=== PATIENT | female | born 1995 | race Caucasian/White ===

== ENCOUNTER → 2018-07-01 | Outpatient (CLI) | payer OTHER ==
[2018-07-01 17:50] LABS: BASO % 0.1 % (0.0-1.0); EOS % 0.3 % (0.0-3.0); HEMATOCRIT 39.1 % (36.0-47.0); HEMOGLOBIN 12.9 g/dl (12.0-15.5); LYMPH # 1.4 10^3/uL (1.5-6.5); LYMPH % 12.7 % (24.0-44.0); MEAN CORPUSCULAR VOLUME 90.9 fl (80.0-96.0); MONO # 0.6 10^3/uL (0.0-0.8); MONO % 5.4 % (0.0-5.0); NEUTROPHILS # 8.8 10^3/uL (1.8-7.7); NEUTROPHILS % 81.1 % (36.0-66.0); PLATELET COUNT, AUTOMATED 319 10^3/uL (150-450); WHITE BLOOD COUNT 10.8 10^3/uL (4.0-10.0)
[2018-07-01 18:59] LABS: CHLAMYDIA DNA AMPLIFICATION NEGATIVE (NEGATIVE); GC DNA AMPLIFICATION NEGATIVE (NEGATIVE)
[2018-07-02 10:31] LABS: HEPATITIS C VIRUS ABY INDEX < 0.0 INDEX (<0.8); HIV 1&2 SCREEN CENTAUR NEGATIVE (NEGATIVE); RUBELLA IgG QUALITATIVE IMMUNE (IMMUNE)
== END ==
LOC: M SMT 14:51
PROVIDERS: ATTEND Advanced Practice Midwife
DX: Z34.82 Encounter for supervision of other normal pregnancy, second trimester (principal); Z3A.00 Weeks of gestation of pregnancy not specified

== ENCOUNTER → 2018-07-28 | Outpatient (CLI) | payer OTHER ==
[2018-07-28 19:04] LABS: ALT/SGPT 55 U/L (12-78); BILIRUBIN,TOTAL 0.2 MG/DL (0.2-1.0); CREATININE FOR GFR 0.63 MG/DL (0.55-1.30); GLOMERULAR FILTRATION RATE > 60.0 (>60); LDH LACTATE DEHYDROGENASE 133 U/L (84-246); URIC ACID 4.2 MG/DL (2.6-6.0)
[2018-07-28 19:24] LABS: CREATININE,RANDOM URINE 62.5 MG/DL; TOTAL PROTEIN,RANDOM URINE < 5.0 MG/DL (0.0-12.0)
== END ==
LOC: M SMT 14:43
PROVIDERS: ATTEND Advanced Practice Midwife
DX: O10.012 Pre-existing essential hypertension complicating pregnancy, second trimester (principal); Z3A.00 Weeks of gestation of pregnancy not specified

== ENCOUNTER → 2018-07-30 | Outpatient (CLI) | payer OTHER ==
--- NOTE | 2018-07-30 11:51 | REP ---
OB ULTRASOUND: Real-time sonographic evaluation of the gravid uterus is performed. There is a single living intrauterine gestation with the estimated gestational age 18 weeks 5 days with EDC 12/26/2018. Today's measurements indicate appropriate growth. Biometry and Growth: BPD 43 mm = 18 weeks 6 days, 55th percentile HC 157 mm = 18 weeks 4 days, 46th percentile AC 133 mm = 18 weeks 5 days, 52nd percentile FL 28 mm = 18 weeks 5 days, 50th percentile HC/AC ratio 1.18 within normal range. Estimated weight 255 grams, 40th percentile. SEEN/GROSSLY UNREMARKABLE Lateral ventricles Yes Posterior fossa No Upper lip No Four-chamber heart Yes LVOT Yes RVOT Yes Stomach Yes Cord insertion No Three vessel cord Yes Kidneys Yes Bladder Yes Spine No Cervical length: Closed and measures 3.5 cm in length. heart rate: 150 beats per minute. position: Vertex. Placenta: Anterior and grade 0 with no previa or abruption. Amniotic fluid: Within normal limits. Electronically Signed by Jin Gary MD 07/30/2018 04:16 P
== END ==
LOC: M RAD 08:29
PROVIDERS: ATTEND Advanced Practice Midwife
DX: Z34.82 Encounter for supervision of other normal pregnancy, second trimester (principal); Z36.89 Encounter for other specified antenatal screening; Z3A.18 18 weeks gestation of pregnancy

== ENCOUNTER → 2018-08-17 | Outpatient (CLI) | payer OTHER ==
--- NOTE | 2018-08-17 16:21 | REP ---
OB ULTRASOUND: Real-time sonographic evaluation of the gravid uterus is performed. This is a followup to an anatomical survey 07/30/2018. There is a single living intrauterine gestation. The estimated gestational age is 21 weeks 2 days. EDC 12/26/2018. Today's measurements indicate appropriate growth. BPD 51 mm = 21 weeks 3 days, 54th percentile. HC 186 mm = 21 weeks 0 days, 39th percentile. AC 174 mm = 22 weeks 2 day, at the 72nd percentile. Femur length 39 mm = 22 weeks 3 days, at the 80th percentile. HC/AC ratio 1.07 within normal range. Estimated weight 485 77th percentile. heart rate 162 beats per minute. Visualized anatomy today the posterior fossa, upper lip, cord insertion and spine which were all grossly unremarkable, not seen well on prior study. position was breech. Placenta is anterior and grade 0 with no previa or abruption. Amniotic fluid within normal limits. Cervix is closed and measures 3.6 cm in length. Electronically Signed by Jin Gary MD 08/17/2018 04:45 P
== END ==
LOC: M RAD 14:10
PROVIDERS: ATTEND Advanced Practice Midwife
DX: O10.012 Pre-existing essential hypertension complicating pregnancy, second trimester (principal); Z3A.21 21 weeks gestation of pregnancy

== ENCOUNTER → 2018-09-23 | Outpatient (CLI) | payer OTHER ==
[2018-09-24 10:09] LABS: HEMATOCRIT 37.3 % (36.0-47.0); HEMOGLOBIN 11.6 g/dl (12.0-15.5); MEAN CORPUSCULAR HEMOGLOBIN 30.6 pg (27.0-33.0); MEAN CORPUSCULAR HGB CONC 31.1 g/dl (32.0-36.5); MEAN CORPUSCULAR VOLUME 98.4 fl (80.0-96.0); PLATELET COUNT, AUTOMATED 289 10^3/uL (150-450); RED BLOOD COUNT 3.79 10^6/uL (4.00-5.40); WHITE BLOOD COUNT 9.7 10^3/uL (4.0-10.0)
== END ==
LOC: M SMT 13:44
PROVIDERS: ATTEND Advanced Practice Midwife
DX: O10.012 Pre-existing essential hypertension complicating pregnancy, second trimester (principal); Z3A.00 Weeks of gestation of pregnancy not specified
CPT/HCPCS: 36415; 82950; 85027; 86850; 86900; 86901; J2790

== ENCOUNTER → 2018-10-21 | Outpatient (CLI) | payer OTHER ==
--- NOTE | 2018-10-21 16:03 | REP ---
Obstetric ultrasound for biophysical profile in a patient with preexisting essential hypertension complicating : There is a single intrauterine gestation in a vertex presentation. There is motion and cardiac activity. The heart rate of 147 beats per minute. The placenta is anterior. There is no placenta previa or abruptio. The placenta demonstrates grade 2 maturity. Subjectively the amniotic fluid volume appears normal. The amniotic fluid index is 13.8/8.9 - 23.8. The cervix measures 2.6 cm length. Gestational age by today's ultrasound is 31 weeks 1 day/MARIO 12/22/2018. Gestational age by the first ultrasound is 30 weeks 5 days/MARIO 12/25/2018. Gestational age by LMP is 30 weeks 4 days/MARIO 12/26/2018. weight is 1667 grams/3 pounds, 10 ounces. This is the 49 percentile for 30 weeks 4 days. biophysical profile: Breathing 2.0 Movement 2.0 Tone 2.0 AFV 2.0 Total 8.0 / 8.0 Umbilical artery Doppler assessment: S/D ratio 2.92 (2.30-3.30) Resistive Index 0.66 (0.59-0.75 Diastolic Velocity 14.7 (>10 cm/sec) anatomy: No anomalies are identified, however, the facial profile could not be optimally demonstrated. However, the facial profile was optimally demonstrated on the prior study of 07/30/2018. Electronically Signed by Jin Cotter MD 10/21/2018 03:53 P
== END ==
LOC: M RAD 13:33
PROVIDERS: ATTEND Obstetrics & Gynecology
DX: O10.013 Pre-existing essential hypertension complicating pregnancy, third trimester (principal); Z36.89 Encounter for other specified antenatal screening; Z3A.31 31 weeks gestation of pregnancy

== ENCOUNTER → 2018-11-23 | Outpatient (CLI) | payer OTHER ==
--- NOTE | 2018-11-24 06:37 | REP ---
Clinical: Growth evaluation. Comparison: 10/21/2018 . Findings: Examination demonstrates a single live intrauterine in cephalic presentation. motion is identified by technologist. Placenta is noted anterior and grade I I without evidence for placenta previa or abruption. Amniotic fluid volume is normal. Cervix measures 2.7 cm in length and appears closed. No evidence for nuchal cord. Gestational age by LMP 35 weeks 2 days with MARIO 12/26/2018 . Gestational age by current measurements 35 weeks 4 day with MARIO is 12/24/2018 . FHR equals 147 beats per minute. BPD 8.9 cm 36 weeks 0 days HC 32.0 cm 36 weeks 0 days AC 31.0 cm 34 weeks 6 days FL 7.0 cm 35 weeks 5 days HL 6.1 cm 35 weeks 4 days HC/AC ratio 1.03 Estimated weight 2653 grams ( 49th percentile). Amniotic fluid index: 10.4 cm (7.8 - 24.9) Umbilical cord SD ratio: 1.76 (2.00 - 3.00) Impression: 1. Single live advanced gestation in cephalic presentation demonstrating appropriate interval growth. 2. Umbilical cord SD ratio minimally below normal range. Electronically Signed by Jordan Arnold MD 11/24/2018 06:29 A
== END ==
LOC: M RAD 12:33
PROVIDERS: ATTEND Obstetrics & Gynecology
DX: O10.013 Pre-existing essential hypertension complicating pregnancy, third trimester (principal)

== ENCOUNTER → 2018-12-03 | Outpatient (CLI) | payer OTHER | LOC: M SMT 13:36 | PROVIDERS: ATTEND Advanced Practice Midwife | DX: O10.013 Pre-existing essential hypertension complicating pregnancy, third trimester (principal) ==

== ENCOUNTER → 2018-12-03 | Outpatient (REF) | payer OTHER | LOC: M LAB REF 16:49 | PROVIDERS: ATTEND Advanced Practice Midwife | DX: O10.013 Pre-existing essential hypertension complicating pregnancy, third trimester (principal) ==

== ENCOUNTER 2018-12-12 22:13 | Inpatient (IN) | payer OTHER ==
[~2018-12-12] VITALS: Ht 170.2 cm; Wt 80.4 kg
[2018-12-12] MEDS: LR 1,000 ML IV SCH (00:45)
[2018-12-12 22:39] VITALS: BP 133/84
[2018-12-12] MEDS ORDERED: PENICILLIN G POTASSIUM IV 5 MU in D5W MINI-BAG PLUS 100 ML IV STA (22:58)
[2018-12-12] MEDS ORDERED: LACTATED RINGER'S 1000 ML IV STA (22:58)
[2018-12-12 23:25] LABS: HEMATOCRIT 34.3 % (36.0-47.0); HEMOGLOBIN 11.4 g/dl (12.0-15.5); MEAN CORPUSCULAR HEMOGLOBIN 29.8 pg (27.0-33.0); MEAN CORPUSCULAR HGB CONC 33.2 g/dl (32.0-36.5); MEAN CORPUSCULAR VOLUME 89.6 fl (80.0-96.0); PLATELET COUNT, AUTOMATED 236 10^3/uL (150-450); RED BLOOD COUNT 3.83 10^6/uL (4.00-5.40); WHITE BLOOD COUNT 10.1 10^3/uL (4.0-10.0)
[2018-12-12] MEDS: miSOPROStol 50 MCG 1/2 TAB (S0191) SL SCH (23:45)
[2018-12-13] VITALS (60 sets, daily range): BP systolic 102–177; BP diastolic 52–96
[2018-12-13] MEDS ORDERED: PRENTAB9 PO
[2018-12-13] MEDS ORDERED: LABE100T36 PO (00:03)
[2018-12-13] MEDS ORDERED: ACETAMINOPHEN 500 MG TAB PO ONE (00:30)
[2018-12-13] MEDS: PENICILLIN G POTASSIUM IV 2.5 MU in IV 1 EA IV SCH ×2 (04:01→07:44)
[2018-12-13] MEDS: miSOPROStol 50 MCG 1/2 TAB (S0191) SL SCH (04:03)
[2018-12-13] MEDS ORDERED: FENTANYL 2MCG/ML ROPIVACAINE 0.2% IN 0.9% NACL 100ML IVBAG As Ordered ONE (06:36)
[2018-12-13] MEDS ORDERED: OXYTOCIN 30 UNITS IN 0.9% NaCl 500ML IV BAG (J2590) As Ordered ONE (07:04)
[2018-12-13] MEDS ORDERED: EPIDURAL/PCA KEYS XX PRN (07:45)
[2018-12-13] MEDS ORDERED: LACTATED RINGER'S 1000 ML IV PRN (07:45)
[2018-12-13] MEDS ORDERED: ONDANSETRON 4MG/2ML VIAL (J2405) IV PRN (07:45)
[2018-12-13] MEDS ORDERED: NALOXONE INJ 0.4 MG/1 ML VIAL (J2310) IV PRN (07:45)
[2018-12-13] MEDS ORDERED: diphenhydrAMINE INJ 50MG/ML VIAL (J1200) IV PRN (07:45)
[2018-12-13] MEDS ORDERED: FENTANYL/ROPIVACAINE/NACL BAG 100 ML EPIDURAL SCH (07:45)
[2018-12-13] MEDS ORDERED: EPIDURAL COMMENT XX SCH (07:45)
[2018-12-13] MEDS ORDERED: REFRIGERATOR IV KEYS XX PRN (07:45)
[2018-12-13] MEDS: PRENATAL VITAMINS CHEWABLE TABLET PO SCH (09:00)
[2018-12-13] MEDS: ePHEDrine SULFATE 25 MG/5 ML(5MG/ML) SYRINGE IV PRN ×3 (09:15→11:19)
[2018-12-13] MEDS ORDERED: OXYTOCIN DRIP 30 UNITS in IV 1 EA IV SCH ×3 (09:45→15:15)
[2018-12-13] MEDS: LR 1,000 ML IV SCH (10:54)
--- NOTE | 2018-12-13 11:34 | IPNPDOC ---
Obstetrical Progress Note Date of Service Dec 13, 2018 Subjective Patient has no complaints. She reports her epidural is working well. Objective Vital Signs Date Time Temp Pulse Resp B/P (MAP) Pulse Ox O2 Delivery O2 Flow Rate FiO2 12/13/18 10:55 98.8 62 18 126/68 (87) Assessment Heart Rate (FHR): 140 Variability: Moderate Accelerations: Positive Decelerations: None Heart Rate Tracing: Category I Tocometer Contractions: Yes Frequency: regular Sterile Vaginal Examination Dilation: complete Station: +1 Assessment and Plan Age: 23 : 1 EGA at Admission: 38 Status: Reassuring Group B Streptococcus: Positive Anticipate: Vaginal Delivery Additional Comments AROM to a small amount of meconium fluid. IV Pitocin is at 4 mu/min. Patient denies feeling any pressure. Will let patient labor down for 30-45 minutes then begin pushing. SERAFIN PAINTING CNM Dec 13, 2018 11:34
[2018-12-13] MEDS ORDERED: METHYLERGONOVINE MALEATE 0.2 MG TAB PO PRN (13:00)
[2018-12-13] MEDS ORDERED: RHOGAM 300 MCG (1500 IU) INJ (J2790) IM SCH (13:00)
[2018-12-13] MEDS ORDERED: MEASLES,MUMPS,RUBELLA VACCINE INJ (MMR-II) (90707) SC SCH (13:00)
[2018-12-13] MEDS ORDERED: ACETAMINOPHEN TAB 650MG DOSE (2X325MG) PO PRN (13:00)
[2018-12-13] MEDS ORDERED: IBUPROFEN 600 MG TAB PO PRN (13:00)
[2018-12-13] MEDS ORDERED: DOCUSATE SODIUM 100 MG CAP PO PRN (13:00)
[2018-12-13] MEDS ORDERED: DIBUCAINE 1% OINTMENT 30GM TOP PRN (13:00)
[2018-12-13] MEDS ORDERED: ANUSOL HC CREAM 30GM TOP PRN (13:00)
--- NOTE | 2018-12-13 13:26 | DNPDOC ---
[facility] Delivery Note Delivery Note DATE OF DELIVERY: 12/13/18 at 12:25 pm. PREDELIVERY DIAGNOSIS: 38-1/7 weeks' gestation and labor. POST DELIVERY DIAGNOSIS: Delivered. PROCEDURE: Spontaneous vaginal delivery. PROVIDER: Serafin Henry CNM, [place] ANESTHESIA: epidural. ESTIMATED BLOOD LOSS: 400 mL. FINDINGS: 6 pounds 0 ounces; 2730 grams, female infant, Score 9/9, CHTN, meconium. DELIVERY SUMMARY: Patient is a 23-year-old female who is now a who presented for an IOL for CHTN. Her BP has been managed on Labetalol 50 mg BID. Cytotec and IV Pitocin were used for her IOL. She received an epidural for pain management. The patient progressed to fully dilated at 1126 and pushing to a living female in the ANGIE position with restitution to ROT. The anterior should delivered with ease and the corpus immediately followed. The baby was placed on the maternal abdomen active and crying. The cord was clamped times 2 after pulsation ceased and cut by the FOB. The placenta delivered spontaneously and intact at 1230. Uterine hemostasis was achieved via rapid infusion of IV Pitocin and fundal massage. The vagina, perineum and cervix was inspected and found to have a right sulcus tear and a left labial tear. Both were repaired with a 3.[address]-1. Good hemostasis was achieved. A cyst on the right perineal area was incised and removed in it's core. No repair needed. Mom and baby are in stable condition. They are naming her Annelise. Mom plans to breast and formula feed . All counts of instruments and sponges are correct. SERAFIN HENRY CNM Dec 13, 2018 13:26
[2018-12-13] MEDS: IBUPROFEN 800 MG TAB PO PRN ×2 (13:49→21:50)
--- NOTE | 2018-12-13 15:31 | IPNPDOC ---
Obstetrical Progress Note Date of Service Dec 13, 2018 Subjective Patient reports she is comfortable with her epidural. Objective Vital Signs Date Time Temp Pulse Resp B/P (MAP) Pulse Ox O2 Delivery O2 Flow Rate FiO2 12/13/18 14:35 99.0 100 20 136/70 (92) Assessment Heart Rate (FHR): 120 Variability: Moderate Accelerations: Positive Decelerations: None Heart Rate Tracing: Category I Tocometer Contractions: Yes Frequency: regular Sterile Vaginal Examination Dilation: 4 cm (4-5 cm) Effacement (%): 100% Station: 0 Postion/Presentation: Cephalic presentation Assessment and Plan Status: Reassuring Group B Streptococcus: Negative Anticipate: Vaginal Delivery Additional Comments Patient has a moderate amount of bleeding. Dr. Henry notified. Will start low dose IV Pitocin to make sure fetus tolerates increased contractions. Consider diagnosis of abruption. Plan to AROM patient when Dr. Henry arrives in L&D. SERAFIN PAINTING CNM Dec 13, 2018 15:31
[2018-12-13] MEDS: ACETAMINOPHEN 500 MG TAB PO PRN (17:47)
[2018-12-14] MEDS: ACETAMINOPHEN 500 MG TAB PO PRN (01:53)
[2018-12-14] MEDS: IBUPROFEN 800 MG TAB PO PRN ×2 (05:51→19:03)
[2018-12-14 06:00] VITALS: BP 139/79
--- NOTE | 2018-12-14 07:40 | IPNPDOC ---
Progress Note Date of Service: Dec 14, 2018 Day#: 1 Progress Note SUBJECT: She has been ambulating, voiding spontaneously without issue and tole rating regular diet. She reports back pain at the epidural site that radiates up her back and a severe headache. OBJECTIVE: VITAL SIGNS: Within normal limits, afebrile. Alert and oriented times three. Breath sounds clear to auscultation. Heart rate: Regular rate and rhythm, no murmurs, rubs or gallops. Abdomen: Fundus firm at U-1. Soft, NTTP. Minimal lochia. ASSESSMENT: Day 1 . PLAN: 1. Anesthesia has been consulted and are considering spinal patch. 2. Continue supportive nursing care. 3. Anticipate discharge to home tomorrow. VS, I&O, 24H, Fishbone Vital Signs/I&O Vital Signs Date Time Temp Pulse Resp B/P (MAP) Pulse Ox O2 Delivery O2 Flow Rate FiO2 12/14/18 06:00 97.7 80 18 139/79 (99) I&O- Last 24 Hours up to 6 AM 12/14/18 05:59 Intake Total 2163.4 ml Output Total 2150 ml Balance 13.4 ml SERAFIN PAINTING CNM Dec 14, 2018 07:40
[2018-12-14] MEDS ORDERED: PERCOCET 5MG/325MG TAB PO ONE ×2 (09:45→15:00)
[2018-12-14] MEDS ORDERED: LR 1,000 ML IV ONE ×2 (10:00→13:30)
[2018-12-14] MEDS: PRENATAL VITAMINS CHEWABLE TABLET PO SCH (10:06)
[2018-12-14] MEDS: FIORICET TAB PO PRN ×3 (10:07→20:37)
[2018-12-14] MEDS ORDERED: CYCLOBENZAPRINE 10 MG TAB PO PRN (17:30)
[2018-12-14 17:58] VITALS: BP 128/76
[2018-12-15] MEDS: IBUPROFEN 800 MG TAB PO PRN ×2 (04:58→10:41)
[2018-12-15 06:00] VITALS: BP 142/86
[2018-12-15] MEDS: PRENATAL VITAMINS CHEWABLE TABLET PO SCH (08:12)
[2018-12-15] MEDS: FIORICET TAB PO PRN (08:15)
== END 2018-12-15 11:40 | disposition home or self-care (01) | DRG 807 ==
LOC: M LDI 22:13 → M OBS 12-13 14:28
PROVIDERS: ADMIT Obstetrics & Gynecology; ATTEND Advanced Practice Midwife
PROC: 3E0P7GC Introduction of Other Therapeutic Substance into Female Reproductive, Via Natural or Artificial Opening (ICD-10-PCS; 2018-12-12)
PROC: 10E0XZZ Delivery of Products of Conception, External Approach (ICD-10-PCS; principal; 2018-12-13)
PROC: 10907ZC Drainage of Amniotic Fluid, Therapeutic from Products of Conception, Via Natural or Artificial Opening (ICD-10-PCS; 2018-12-13)
PROC: 0HQ9XZZ Repair Perineum Skin, External Approach (ICD-10-PCS; 2018-12-13)
PROC: 0HB9XZZ Excision of Perineum Skin, External Approach (ICD-10-PCS; 2018-12-13)
DX: O10.02 Pre-existing essential hypertension complicating childbirth (principal); Z37.0 Single live birth; Z3A.38 38 weeks gestation of pregnancy; O99.824 Streptococcus B carrier state complicating childbirth; O77.0 Labor and delivery complicated by meconium in amniotic fluid; O70.0 First degree perineal laceration during delivery; L72.9 Follicular cyst of the skin and subcutaneous tissue, unspecified; O99.72 Diseases of the skin and subcutaneous tissue complicating childbirth; O74.5 Spinal and epidural anesthesia-induced headache during labor and delivery

== ENCOUNTER 2018-12-17 19:36 | Emergency (ER) | payer OTHER ==
[~2018-12-17] VITALS: Ht 170.2 cm; Wt 75.0 kg
[~2018-12-17 19:36] MED LIST: LABE100T36 PO; PRENTAB9 PO
[2018-12-17] MEDS ORDERED: NS 1,000 ML IV ONE (20:15)
[2018-12-17] MEDS ORDERED: ACETAMINOPHEN 325 MG TAB PO ONE (20:15)
[2018-12-17 20:28] LABS: BASO % 0.2 % (0.0-1.0); EOS # 0.2 10^3/uL (0.0-0.5); EOS % 2.2 % (0.0-3.0); HEMATOCRIT 34.3 % (36.0-47.0); HEMOGLOBIN 11.5 g/dl (12.0-15.5); LYMPH % 22.9 % (24.0-44.0); MEAN CORPUSCULAR HEMOGLOBIN 29.9 pg (27.0-33.0); MEAN CORPUSCULAR HGB CONC 33.5 g/dl (32.0-36.5); MEAN CORPUSCULAR VOLUME 89.1 fl (80.0-96.0); MONO # 0.6 10^3/uL (0.0-0.8); MONO % 6.7 % (0.0-5.0); NEUTROPHILS # 5.8 10^3/uL (1.5-8.5); NEUTROPHILS % 67.4 % (36.0-66.0); PLATELET COUNT, AUTOMATED 324 10^3/uL (150-450); RED BLOOD COUNT 3.85 10^6/uL (4.00-5.40); WHITE BLOOD COUNT 8.6 10^3/uL (4.0-10.0)
[2018-12-17] MEDS ORDERED: diphenhydrAMINE INJ 50MG/ML VIAL (J1200) IV STA (20:29)
[2018-12-17] MEDS ORDERED: METOCLOPRAMIDE INJ 10MG/2ML VIAL (J2765) IV ONE (20:30)
[2018-12-17] MEDS ORDERED: KETOROLAC 30 MG/ML VIAL (J1885) IV ONE (20:30)
[2018-12-17] MEDS ORDERED: MORPHINE 4 MG/ML 1ML VIAL/SYRINGE (J2270) IV ONE (22:15)
[2018-12-17 22:54] VITALS: BP 159/95
[2018-12-17] MEDS ORDERED: FIORICET TAB PO ONE (23:15)
== END 2018-12-17 23:15 | disposition home or self-care (01) ==
LOC: M ED 19:36
DX: O89.4 Spinal and epidural anesthesia-induced headache during the puerperium (principal); Z79.899 Other long term (current) drug therapy
CPT/HCPCS: 80047; 85025; 96361; 96374; 96375; 99284; J1200; J1885; J2270; J2765

== ENCOUNTER 2018-12-18 07:05 | Emergency (ER) | payer OTHER ==
[~2018-12-18] VITALS: Ht 170.2 cm; Wt 75.1 kg
[2018-12-18 08:14] LABS: BASO % 0.3 % (0.0-1.0); EOS # 0.2 10^3/uL (0.0-0.5); EOS % 2.3 % (0.0-3.0); HEMATOCRIT 37.4 % (36.0-47.0); HEMOGLOBIN 12.3 g/dl (12.0-15.5); LYMPH # 1.8 10^3/uL (1.5-5.0); LYMPH % 23.7 % (24.0-44.0); MEAN CORPUSCULAR HEMOGLOBIN 29.6 pg (27.0-33.0); MEAN CORPUSCULAR HGB CONC 32.9 g/dl (32.0-36.5); MEAN CORPUSCULAR VOLUME 90.1 fl (80.0-96.0); MONO # 0.6 10^3/uL (0.0-0.8); MONO % 7.3 % (0.0-5.0); NEUTROPHILS # 5.1 10^3/uL (1.5-8.5); NEUTROPHILS % 65.9 % (36.0-66.0); PLATELET COUNT, AUTOMATED 317 10^3/uL (150-450); RED BLOOD COUNT 4.15 10^6/uL (4.00-5.40); WHITE BLOOD COUNT 7.8 10^3/uL (4.0-10.0)
[2018-12-18 08:43] LABS: ALBUMIN 3.2 GM/DL (3.2-5.2); ALT/SGPT 67 U/L (12-78); BILIRUBIN,DIRECT < 0.1 MG/DL (0.0-0.2); BILIRUBIN,TOTAL 0.2 MG/DL (0.2-1.0); BLOOD UREA NITROGEN 8 MG/DL (7-18); CALCIUM LEVEL 9.4 MG/DL (8.5-10.1); CARBON DIOXIDE LEVEL 25 MEQ/L (21-32); CHLORIDE LEVEL 108 MEQ/L (98-107); CREATININE FOR GFR 0.67 MG/DL (0.55-1.30); GLOMERULAR FILTRATION RATE > 60.0 (>60); GLUCOSE, FASTING 87 MG/DL (70-100); POTASSIUM SERUM 3.7 MEQ/L (3.5-5.1); SODIUM LEVEL 139 MEQ/L (136-145); TOTAL PROTEIN 7.4 GM/DL (6.4-8.2)
[2018-12-18 09:18] LABS: AMORPHOUS SEDIMENT SMALL (NEGATIVE); APPEARANCE, URINE HAZY (CLEAR); BACTERIA, URINE AUTO 2+ (NEGATIVE); BILIRUBIN, URINE AUTO NEGATIVE (NEGATIVE); BLOOD, URINE BLOOD 3+ (NEGATIVE); CALCIUM OXALATE CRYSTALS SMALL; COLOR, URINE STRAW (YELLOW); GLUCOSE, URINE (UA) AUTO NEGATIVE (NEGATIVE); KETONE, URINE AUTO NEGATIVE (NEGATIVE); LEUKOCYTE ESTERASE, URINE AUTO 3+ (NEGATIVE); NITRITE, URINE AUTO NEGATIVE (NEGATIVE); PROTEIN, URINE AUTO NEGATIVE (NEGATIVE); RBC, URINE AUTO 130 /HPF (0-3); SPECIFIC GRAVITY URINE AUTO 1.003 (1.002-1.035); SQUAMOUS EPITHELIAL CELL UR AU 1 /HPF (0-6); UROBILINOGEN, URINE AUTO 0.2 mg/dL (0.0-2.0); WBC, URINE AUTO 36 /HPF (0-3)
[2018-12-18] MEDS ORDERED: NS 1,000 ML IV ONE (09:30)
[2018-12-18 11:18] VITALS: BP 141/94
== END 2018-12-18 11:30 | disposition home or self-care (01) ==
LOC: M ED 07:05
DX: G97.1 Other reaction to spinal and lumbar puncture (principal)

== ENCOUNTER → 2018-12-18 | Outpatient (CLI) | payer OTHER ==
[2018-12-18 12:52] VITALS: BP 158/95
== END ==
LOC: M OPP 10:23
PROVIDERS: ATTEND Anesthesiology
DX: G97.1 Other reaction to spinal and lumbar puncture (principal); R51 Headache; M54.2 Cervicalgia; I10 Essential (primary) hypertension

== ENCOUNTER → 2019-04-08 | Outpatient (REF) | payer OTHER | LOC: M SFHCWAGY 17:01 | PROVIDERS: ATTEND Advanced Practice Midwife | DX: Z12.4 Encounter for screening for malignant neoplasm of cervix (principal) | CPT/HCPCS: 87624; G0123 ==